=== PATIENT | male | born 1995 | race Caucasian/White ===

== ENCOUNTER 2018-04-08 22:02 | Emergency (ER) | payer OTHER ==
[2018-04-09] MEDS: DOXYCYCLINE HYCLATE 100 MG TAB PO ×2 (00:12)
[2018-04-09] MEDS: cefTRIAXone SOD 250 MG VIAL (J0696) IM ×2 (00:13)
[2018-04-09 02:01] LABS: CHLAMYDIA DNA AMPLIFICATION POSITIVE (NEGATIVE); GC DNA AMPLIFICATION NEGATIVE (NEGATIVE)
== END 2018-04-09 00:38 | disposition home or self-care (01) ==
LOC: M ED 04-09 00:38
DX: N45.2 Orchitis (principal); Z72.0 Tobacco use
CPT/HCPCS: J0696